=== PATIENT | female | born 1980 | race Hispanic/Latino ===

== ENCOUNTER 2016-10-17 23:11 | Inpatient (IN) | payer MEDICAID ==
[~2016-10-17] VITALS: Ht 170.2 cm; Wt 83.9 kg
[~2016-10-17 23:11] MED LIST: MISO200T4 PO; PNV1TABL9 PO
[2016-10-18] VITALS (8 sets, daily range): BP systolic 95–104; BP diastolic 51–61; PULSE 66–92; RESP 11–17; O2SAT 93–97
[2016-10-18] MEDS ORDERED: Lactated Ringer's 1,000 ML IV PRN (00:04)
[2016-10-18] MEDS ORDERED: Oxytocin 30 Units/500 mL LR 30 UNITS in IV Premix 1 EACH IV PRN ×2 (00:05→04:15)
[2016-10-18] MEDS ORDERED: Oxytocin 10 Unit/mL Inj IM PRN ×2 (00:05→04:15)
[2016-10-18] MEDS ORDERED: Hemorrhage Kit, Post Partum XX ONE ×2 (00:05→04:15)
[2016-10-18] MEDS ORDERED: Carboprost 250 mCg/mL Inj IM PRN ×2 (00:05→04:15)
[2016-10-18] MEDS ORDERED: Sodium Chloride LOK Flush 10 mL Syringe IVFLUSH PRN (00:05)
[2016-10-18] MEDS ORDERED: Methylergonovine 0.2 mg/mL Inj IM PRN ×2 (00:05→04:15)
[2016-10-18 00:40] LABS: Mean Corpuscular Hemoglobin 28.8 pg (27.0-35.0); Mean Corpuscular Volume 84.3 fL (81-100)
[2016-10-18] MEDS ORDERED: fentaNYL 2 mCg/mL-Bupivicaine 0.125% 100 mL Premix EPIDURAL ONE (00:58)
[2016-10-18] MEDS ORDERED: Lactated Ringer's 1,000 ML IV SCH ×4 (01:33→14:01)
[2016-10-18] MEDS ORDERED: Lactated Ringer's 500 ML IV ONE (01:33)
--- NOTE | 2016-10-18 01:34 | PCM.HPANE ---
Patient Data Surgeon Admitting Provider:Nora Shafer MD Attending Provider:Nora Shafer MD Primary Care Physician:Nora Shafer MD Other Provider:Pallavi Ziegler Anesthesia Reason for Visit Term Labor TERM LABOR Ht/WT & BMI Body Mass Index Allergies Coded Allergies: No Known Allergies (Verified , 02/28/04) Diabetes History Hx Diabetes?: No Medications Reported Medications Misoprostol 200 Mcg [id number] Mcg PO ONCE vaginally 5-6am morning of surgery 09/24/15 Pnv Cmb#21/Iron/Folic Acid ( Complete Caplet)1 Each Tablet1 Each PO DAILY 09/24/15 History History of ENT Problems?: No Hx of Heart Problems?: No Hx of Respiratory Problem?: No Hx Neurologic Problems?: No Hx of GI Problems?: No Hx of Problems?: No Female Hx: Positive for:: Problems with Breasts? (Hx of left breast biopsy) Denies:: Currently (missed Ab current admission problem) Hx Musculoskeletal Problems?: No Hx of Psycho/Social Problems?: Yes Psycho Social History: Positive for:: Hx Depression Hx Surgeries?: Yes (left breast biopsy) Hx Any Other Health Problems?: Yes Hx Diabetes: No Smoking Status: Never Smoker Have You Smoked inLast 12 mo: No Stop/Bang Risk Assessment Category Category 1A: Patient has history of documented sleep apnea, and HAS NOT received any narcotic, sedative or anesthesia administration during this stay. Category 1B: Patient has history of documented sleep apnea, and HAS received any narcotic , sedative or anesthesia administration during this stay Category 2: Patient has SUSPECTED Obstructive Sleep Apnea, and HAS received any narcotic , sedative or anesthesia administration during this stay. Category 3: Patient has SUSPECTED Obstructive Sleep Apnea and HAS NOT received narcotic, sedative or anesthesia administration during this stay. Category 4: Outpatient in Procedural Areas with known sleep apnea or who screen positive for High Risk via the STOP/BANG questionnaire. Exam Exam General Appearance: Alert, Oriented X3, Cooperative, No Acute Distress, Severe Distress (labor pain) HEENT/AIRWAY: MP 2 Lungs: Clear to Auscultation, Normal Air Movement Heart: Exam Unremarkable, Regular Rate/Rhythm, No Murmurs/Rubs/Gallops Meds/Labs/Diagnostics Labs Test 10/18/16 00:00 10/18/16 00:04 Hold Purple Top Tube Received (Received) White Blood Count 10.4th/mm3 (3.8-10.1) Red Blood Count 4.20mil/mm3 (3.90-5.20) Hemoglobin 12.1g/dL (12.0-15.6) Hematocrit 35.4% (35.0-46.0) Mean Corpuscular Volume 84.3fL (81-100) Mean Corpuscular Hemoglobin 28.8pg (27.0-35.0) Mean Corpuscular Hemoglobin Concent 34.2% (32.0-37.0) Red Cell Distribution Width 13.7% (12.3-15.4) Platelet Count 197bil/L (150-400) Plan Impression Patient chart reviewed, patient interviewed and anesthestic plan with risks, benefits, and alternatives discussed, and informed consent obtained. NPO Status: 0830 TASTE OF RICE AND MILK ASA Physical Status: ASA1 Normal Healthy Anesthetic Plan: Epidural Bene/Risks/Altern/Consents: Yes HP Complete Prior to Induction: Yes Gary Roman MD Oct 18, 2016 00:57
[2016-10-18] MEDS ORDERED: fentaNYL 2 mCg/mL-Bupiv 0.125% 100 ML EPIDURAL SCH (01:35)
[2016-10-18] MEDS ORDERED: Atropine 1 mg/10 mL (Code) Syringe IVPUSH PRN (01:35)
[2016-10-18] MEDS ORDERED: EPHEDrine Sulfate 50 mg/mL Inj IVPUSH PRN ×2 (01:35→14:00)
--- NOTE | 2016-10-18 03:32 | HP ---
[address] [address] HISTORY AND PHYSICAL PATIENT: ANGEL WEBB : 1980 MR#: [id number] ADMIT: 10/17/2016 JOB ID: [id number] CHIEF COMPLAINT: Contractions. HISTORY OF PRESENT ILLNESS: This is a 36-year-old, G6, P4-0-1-4 female who is presenting at 37 plus five weeks gestational age with an EDC of November 03, 2016, complaining of regular uterine contractions. She was seen earlier in the evening and noted to be 3 cm dilated, unchanged after several hours and discharged home. She returned later in the evening, again complaining of contractions, and was at that point in time noted to be 5 cm dilated so was then admitted in active labor. Her has been complicated by anemia, grand multiparity and undesired fertility with plans for tubal ligation. PAST MEDICAL HISTORY: Denies. PAST SURGICAL HISTORY: Suction dilation and curettage for her missed . SOCIAL HISTORY: No tobacco, alcohol, or drug use. FAMILY HISTORY: Noncontributory. MEDICATIONS: vitamins. ALLERGIES: No known drug allergies. LABORATORY DATA: Blood type is A-positive. Antibody screen negative, rubella immune. Hep B surface antigen negative. RPR nonreactive. HIV negative. GBS negative. PHYSICAL EXAMINATION: Objectively her blood pressure is 108/76, her heart rate is 98, temperature is 98.6, and respiratory rate is 18. In general, she is awake, alert, oriented, comfortable, in no acute distress. She has already received an epidural. Heart shows a regular rate and rhythm. Her abdomen is soft, nontender, nondistended. EFW is approximately 7 pounds and she does appear to somewhat large for her 37 weeks gestational age. Her extremities show no tenderness or edema. heart tones show 140s baseline, moderate variability, accelerations are present. There are mild variable decelerations present as well. Tocometry shows contractions every 3 minutes. Bedside cervical check by the RN notes that she is currently at 10 cm dilated at 0 station. There is no palpable bag of water identifiable on examination at this time. At the time of admission, she was 5 and has progressed quickly to this point. ASSESSMENT: This is a 36-year-old, G6, P4-0-1-4, female at 37 plus five weeks gestational age. Estimated date of confinement of November 03, 2016, who is admitted in active labor, making good cervical change on her own. PLAN: 1. Continue expectant management at this time. As she is completely dilated will begin pushing and anticipate a normal vaginal delivery. Largest baby delivered in the past was 8 pounds. 2. She has undesired fertility. She has signed [facility] sterilization consent previously in clinic. Plan for tubal ligation following delivery. 3. Her labs appear up-to-date and she is Rh positive, rubella immune. She has received a Tdap, as well as a flu vaccine this .
[2016-10-18] MEDS ORDERED: Benzocaine (Dermoplast) 20% 60 Gm Spray TOPICAL PRN (04:15)
[2016-10-18] MEDS ORDERED: LANOlin HPA 7 Gm Ointment TOPICAL PRN (04:15)
[2016-10-18] MEDS ORDERED: Witch Hazel-Glycerin Pads TOPICAL PRN (04:15)
--- NOTE | 2016-10-18 04:18 | OP ---
[address] [address] OPERATIVE REPORT PATIENT: ANGEL WEBB : 1980 MR#: [id number] ADMIT: 10/17/2016 JOB ID: [id number] DATE OF SURGERY: 10/18/2016 PREOPERATIVE DIAGNOSIS(ES): A 37 week intrauterine in active labor. POSTOPERATIVE DIAGNOSIS(ES): A 37 week intrauterine in active labor. PROCEDURE PERFORMED: Spontaneous vaginal delivery of a liveborn female infant, born on October 18, 2016, of average weight, with actual weight pending, Apgars of 8 at one minute, 9 at five minutes. SURGEON: Melinda Briggs MD. ANESTHESIA: Epidural. ESTIMATED BLOOD LOSS: 400 cc. FLUID REPLACEMENT: Crystalloid in labor. COMPLICATIONS: None apparent. INDICATIONS: This is a 36-year-old, G6, P4-0-1-4 female who presented at 37 plus five weeks gestation complaining of regular uterine contractions. She was noted to be making cervical change so she was admitted in active labor. Epidural was placed for pain relief and she progressed from 3 cm earlier in the day all the way to complete by the salon customer experience specialist hours of October 18. She spontaneously ruptured on her own in the salon customer experience specialist hours of October 18 and then quickly progressed to complete as noted. PROCEDURE: The patient was noted to be complete she was placed in dorsal lithotomy position, prepped and draped in usual sterile fashion for delivery. She pushed and head delivered spontaneously in the ROD position over an intact perineum. The anterior shoulder delivered easily, followed by the posterior shoulder and remainder of the then delivered easily. The cord was clamped and cut after a 60 second cord clamping delay, and the was placed on the mother's abdomen. Pitocin was then started per protocol. The placenta then delivered intact spontaneously and was passed off the table. The uterus was firm on bimanual massage and there were some remaining placental membranes that were removed manually. The uterus was firm. Examination of the cervix, vaginal vault and perineum revealed no lacerations. There was a small midline perineal abrasion that was not repaired. All sponge, needle and instrument counts were correct at the completion the procedure. [facility]
[2016-10-18] MEDS ORDERED: Sodium Citrate-Citric Acid 15 mL Solution PO SCH (06:00)
[2016-10-18] MEDS: Ascorbic Acid 500 mg Tablet PO SCH ×2 (08:00→18:29)
[2016-10-18] MEDS ORDERED: fentaNYL-PF 50 mCg/mL 2 mL Inj ONE (12:55)
[2016-10-18] MEDS ORDERED: Lactated Ringer's 500 ML IV PRN (13:58)
[2016-10-18] MEDS ORDERED: Phenylephrine 10,000 mCg/mL Inj IVPUSH PRN (14:00)
[2016-10-18] MEDS ORDERED: fentaNYL-PF 50 mCg/mL 2 mL Inj IVPUSH PRN (14:00)
[2016-10-18] MEDS ORDERED: HYDROmorphone 1 mg/mL Inj IVPUSH PRN (14:00)
[2016-10-18] MEDS ORDERED: Ondansetron 2 mg/mL 2 mL Inj IVPUSH PRN ×2 (14:00→14:05)
[2016-10-18] MEDS ORDERED: Labetalol 5 mg/mL 4 mL Inj IV PRN (14:00)
[2016-10-18] MEDS ORDERED: Atropine 0.4 mg/mL Inj IVPUSH PRN (14:00)
[2016-10-18] MEDS ORDERED: hydrALAZINE 20 mg/mL Inj IVPUSH PRN (14:00)
[2016-10-18] MEDS ORDERED: MetoCLOpramide 5 mg/mL 2 mL Inj IVPUSH PRN (14:00)
[2016-10-18] MEDS ORDERED: Dexamethasone 4 mg/mL Inj IVPUSH PRN (14:00)
--- NOTE | 2016-10-18 14:02 | PCM.HPANE ---
Patient Data Date of Service: Oct 18, 2016 Surgeon Admitting Provider:Nora Shafer MD Attending Provider:Nora Shafer MD Primary Care Physician:Nora Shafer MD Other Provider:Pallavi Ziegler Anesthesia Reason for Visit Term Labor TERM LABOR Ht/WT & BMI Body Mass Index Allergies Coded Allergies: No Known Allergies (Verified , 02/28/04) Diabetes History Hx Diabetes?: No Medications Hypertension Medication: No Home Meds Incl Beta Johnathon: No Reported Medications Misoprostol 200 Mcg [id number] Mcg PO ONCE vaginally 5-6am morning of surgery 09/24/15 Pnv Cmb#21/Iron/Folic Acid ( Complete Caplet)1 Each Tablet1 Each PO DAILY 09/24/15 History History of ENT Problems?: No Hx of Heart Problems?: No Hx of Respiratory Problem?: No Hx Neurologic Problems?: No Hx of GI Problems?: No Hx of Problems?: No Female Hx: Positive for:: Problems with Breasts? (Hx of left breast biopsy) Denies:: Currently (missed Ab current admission problem) Hx Musculoskeletal Problems?: No Hx of Psycho/Social Problems?: Yes Psycho Social History: Positive for:: Hx Depression Hx Surgeries?: Yes (left breast biopsy) Hx Any Other Health Problems?: Yes Hx Diabetes: No Smoking Status: Never Smoker Have You Smoked inLast 12 mo: No Stop/Bang Treated for Sleep Apnea?: No Do You Have a CPAP Machine?: No S-Snoring: Do You Snore Loudly: No T-Tired: feel tired, fatigued: No O-Obsered: Observed not breath: No P-Blood Pressure: treated: No B- Body Mass Index > 35 kg/m2: No A- Age over 50: No N- Neck Large Circumference: No G- Gender Male: No BERTHA Risk Assessment: Low Risk, <3 Yes Risk Assessment Category Category 1A: Patient has history of documented sleep apnea, and HAS NOT received any narcotic, sedative or anesthesia administration during this stay. Category 1B: Patient has history of documented sleep apnea, and HAS received any narcotic , sedative or anesthesia administration during this stay Category 2: Patient has SUSPECTED Obstructive Sleep Apnea, and HAS received any narcotic , sedative or anesthesia administration during this stay. Category 3: Patient has SUSPECTED Obstructive Sleep Apnea and HAS NOT received narcotic, sedative or anesthesia administration during this stay. Category 4: Outpatient in Procedural Areas with known sleep apnea or who screen positive for High Risk via the STOP/BANG questionnaire. Exam Exam General Appearance: Alert, Oriented X3, Cooperative, No Acute Distress HEENT/AIRWAY: MP 2 Lungs: Clear to Auscultation Heart: Exam Unremarkable, Regular Rate/Rhythm, No Murmurs/Rubs/Gallops Meds/Labs/Diagnostics Admission Meds Current Medications Citric Acid/ Sodium Citrate (Bicitra) 30 ml PREOP PO Last administered on t 11:37; Start 10/18/16 at 06:00 Labs Test 10/18/16 00:00 10/18/16 00:04 10/18/16 08:50 Hold Purple Top Tube Received (Received) White Blood Count 10.4th/mm3 (3.8-10.1) Red Blood Count 4.20mil/mm3 (3.90-5.20) Mean Corpuscular Volume 84.3fL (81-100) Mean Corpuscular Hemoglobin 28.8pg (27.0-35.0) Mean Corpuscular Hemoglobin Concent 34.2% (32.0-37.0) Red Cell Distribution Width 13.7% (12.3-15.4) Platelet Count 197bil/L (150-400) Hemoglobin 11.0g/dL (12.0-15.6) Hematocrit 33.4% (35.0-46.0) Plan Impression Patient chart reviewed, patient interviewed and anesthestic plan with risks, benefits, and alternatives discussed, and informed consent obtained. NPO Status: 0830 TASTE OF RICE AND MILK ASA Physical Status: ASA2 Mod Systemic Disease Anesthetic Plan: GA, Regional Block (Will attempt spinal. GA as backup.) Bubba Robertson MD Oct 18, 2016 14:02
[2016-10-18] MEDS ORDERED: oxyCODONE-Acetamin 5-325 mg Tablet PO PRN (14:05)
[2016-10-18] MEDS ORDERED: Acetaminophen IV 1,000 MG in IV Premix 1 EACH IV PRN (14:05)
[2016-10-18] MEDS ORDERED: Ketorolac 15 mg/mL Inj IVPUSH PRN (14:05)
--- NOTE | 2016-10-18 14:05 | PCM.ANEP1 ---
Post Anesthesia Phase 1 PACU Phase 1 Assessment Date of Service: Oct 18, 2016 Anesthetic Administered: GA Level of Alertness: Sleepy, easy to arouse SALDIVAR's with Equal Strength: Yes Pain: Yes Pain Scale Score: 4 Nausea or Vomiting: No Oxygen Delivery: Room Air Lungs: Clear to Auscultation Dermatome Level: Full Sensation Bubba Robertson MD Oct 18, 2016 14:05
--- NOTE | 2016-10-18 14:07 | PCM.ANEP2 ---
Post Anesthesia Evaluation ASA/CMS Post Anesthesia VS in Patient's Normal Range?: Yes Resp Stable; Airway Patent?: Yes CV Function & Hydration Stable: Yes Mental Status Recovered?: Yes Pain control Satisfactory?: Yes N/V Control Satisfactory?: Yes Bubba Robertson MD Oct 18, 2016 14:07
[2016-10-18] MEDS ORDERED: Lactated Ringer's 1,000 ML IV ONE (14:12)
[2016-10-18] MEDS: oxyCODONE-Acetamin 5-325 mg Tablet PO PRN ×2 (14:31→22:02)
--- NOTE | 2016-10-19 00:29 | OP ---
[address] [address] OPERATIVE REPORT PATIENT: ANGEL WEBB : 1980 MR#: [id number] ADMIT: 10/17/2016 JOB ID: [id number] DATE OF SURGERY: 10/18/2016 PREOPERATIVE DIAGNOSIS(ES): Multiparity, desires permanent sterilization day zero. POSTOPERATIVE DIAGNOSIS(ES): Multiparity, desires permanent sterilization day zero. PROCEDURE: 1. tubal ligation via mini-laparotomy and partial salpingectomy. 2. Repair of uterine serosal laceration at right cornu. ESTIMATED BLOOD LOSS: 75 mL. DRAINS: None. ANESTHESIA: General for inadequate epidural anesthesia. SURGEON: Jose Angel Cancino MD. SPRAY UNIT FEEDER: Nora Shafer MD. Paving Stone Installer was required for retraction and exposure for safe completion of the procedure. COMPLICATIONS: Uterine serosal laceration at the right cornu that was repaired. FLUID: 1100 crystalloid fluid IV. SPECIMENS: Right and left segments of fallopian tubes. INDICATIONS: This is a 37 years old 6, para 5-0-1-5, who is day zero, status post spontaneous vaginal delivery, desires permanent sterilization. Patient was consented at the office over a month ago and consent was reviewed. Before the procedure, patient was consented again for risk, benefits and alternatives of the tubal ligation, which include, but are not limited to, tubal ligation is a permanent procedure with a failure rate of 1:200, and there is a risk of ectopic in 1/3 of failed tubal ligation patients. Risks of surgery, which includes, but not limited to, risk of infection, bleeding, and injury to adjacent organs, risk of anesthesia, risk of blood transfusions, LARC as alternative were also reviewed. Male sterilization option was also discussed. All questions were answered. Patient desires to proceed with tubal ligation as planned today. PROCEDURE: After informed consent was obtained, patient was taken to the operation room. She was placed in a sitting position where epidural anesthesia was rebolused. The patient was placed in supine position. She was prepped and draped in usual sterile fashion. After assessment of the anesthesia coverage that was inadequate, decision was made to convert to general anesthesia. After adequate general anesthesia was introduced, two Allis clamps were used to grasp the subumbilical region creating subumbilical ridge. Using a scalpel, incision was made in a transverse fashion in the subumbilical ridge. Allis clamps were removed and replaced at the edges of the incision, with blunt and sharp dissection down to the fascia was performed. The fascia was grasped with two Maame clamps and was elevated and entered with sharp incision. The incision was extended. Attention was made to evaluate for any injury at the entrance to the peritoneal cavity. No evidence of injury at this point. Two [facility] retractors were placed. A mini-lap was placed in the left gutter. Patient was tilted to the right. With assistance of Irene clamp, the fallopian tube was grasped and followed out to the fimbria. The middle segment of the tube was elevated with a Stephani clamp and area clear of the vascularity was identified and a window was created with Bovie cautery. A double tie was performed in each side of the 4 cm in length middle segment of the tube bilaterally. The double ligated middle segment of the tube was then excised and sent for pathology. The fallopian tube edges were cauterized. Adequate hemostasis was noted. The remaining stumps of the tube was returned back to the abdominal cavity. Then, attention was turned to the right fallopian tube. Patient was tilted to the left and a mini-lap was introduced into the right gutter to retract the bowel and expose the fallopian tube, that was grasped with Irene clamp and traced out to the fimbria and exteriorized. An area clear off the vascularity in the mesosalpinx was identified. A window was created with Bovie cautery. The middle segment of the tube was double ligated with 0-Vicryl bilaterally and approximately 4 cm was excised and sent to Pathology evaluation. The end of the tube was cauterized and at this point some bleeding was noted. The mesosalpinx and the fimbria ends were examined and hemostasis was noted. Then, a 3-4 cm laceration was identified at the cornual region of the right cornu. The laceration was 2-3 mm in depth that was closed with 2-0 chromic with good hemostasis. No further bleeding was noted. The fascia was reapproximated with 0-Vicryl in a running fashion. The subcutaneous tissue was reapproximated with 2-0 chromic in interrupted fashion. The skin edges were reapproximated with 4-0 Vicryl in subcuticular fashion. Steri-Strips were applied, followed by a bandage. All instrument, needles and sponge counts were correct x2. The patient was taken to the recovery room in stable condition. Jose Agnel Reyes MD, was present and scrubbed for the entire procedure. LILLY
[2016-10-19] MEDS: oxyCODONE-Acetamin 5-325 mg Tablet PO PRN ×2 (04:37→09:52)
[2016-10-19] MEDS: Ascorbic Acid 500 mg Tablet PO SCH (07:48)
[2016-10-19 09:17] LABS: BASOPHILS % (AUTO) 0.3 % (0-3); EOSINOPHILS % (AUTO) 1.2 % (0-5); MONOCYTES % (AUTO) 8.8 % (4-12); Mean Corpuscular Hemoglobin 28.4 pg (27.0-35.0); Mean Corpuscular Volume 86.6 fL (81-100); NEUTROPHILS % (AUTO) 72.4 % (40-74); Platelet Count 179 bil/L (150-400)
--- NOTE | 2016-10-19 11:46 | PCM.DIOB ---
Obstetrical Disch Instruction Date of Service: Oct 19, 2016 Dates of Hospitalization Date of Hospital Admission Oct 17, 2016 at 23:35 Providers Admitting Physician: Nora Shafer MD Primary Care Physician: Nora Shafer MD Attending Physician: Nora Shafer MD Discharge Diagnosis Discharge Diagnosis Status post normal vaginal delivery and post tubal ligation. Post Operative diagnosis Status post normal vaginal delivery and post tubal ligation. Problems: Diet Discharge Diet: No restrictions Activity Discharge Activity-General: Pelvic Rest for 6 weeks (no sex, no douching nor tampon), Be up and about, Balance rest and activity, No lifting >10 pounds for 4 -6 weeks Dressing and Incisional Care Dressing Care: Allow Steri Stripes to fall off Hygiene: May shower (Daily ) Follow Up Plan Follow Up Plan Headache, change in vision, nausea or vomiting, leg swelling, redness or pain. Follow-up Provider (F9): Jose Angel Cancino MD Follow-up appointment: Weeks (two) Call your provider for: Fever or Chills, Shortness of breath, Heavy vaginal bleeding, Heavy bleeding, Epigastric pain, Excessive constipation, Vaginal discomfort, Red painful breasts, Other (Headache, change in vision, nausea or vomiting, leg swelling, redness or pain. ) Jose Angel Cancino MD Oct 19, 2016 11:46
[2016-10-19] MEDS ORDERED: PNV1TABL9 PO (11:49)
[2016-10-19] MEDS ORDERED: IBUP-1827 PO (11:50)
[2016-10-19] MEDS ORDERED: OXYC1TAB24 PO (11:50)
[2016-10-19] MEDS ORDERED: DOCU-41 PO (11:50)
[2016-10-19 11:54] VITALS: BP 83/51; PULSE 66; RESP 20
--- NOTE | 2016-10-19 11:56 | PCM.DC.OB ---
Obstetrical Discharge Summary Date of Service Oct 19, 2016 Date of hospital admission Oct 17, 2016 at 23:35 Date of Discharge: Oct 19, 2016 Providers Admitting Physician: Nora Shafer MD Primary Care Physician: Nora Shafer MD Attending Physician: Nora Shafer MD Diagnosis at Time of Discharge day #1 Status post normal vaginal delivery. Post Operative day #1 post tubal ligation. Problems: Hospital Course: This is a 36-year-old, G6, P5-0-1-5 female who presented at 37 plus five weeks gestation in active labor and delivered on 10/18/16 via under epidural anaesthesia. Outcome: 3529 g , female , apgars 9 and 9 at 1 and 5 minutes respectively. Patient underwent tubal ligation on 10/18/16. See delivery and operative note for details. PHYSICAL EXAMINATION: At discharge day patient is feeling weel, pain well controlled with oral pain medications, tolerating regular diet, voiding and ambulating without difficulty. VS: 83/51, 66, 20, 36.9 General: awake, alert, oriented, comfortable, in no acute distress. Resp: EAE B/L CVS: S1+S2+0 Abdomen: soft, nontender,nondistended. Incision I/C/D. Lower extremities: no tenderness or edema. Lochia: normal. LABORATORY DATA: Blood type is A-positive. Antibody screen negative rubella immune. Hep B surface antigen negative. RPR nonreactive. HIV negative. GBS negative. LABS: Laboratory Tests 72 Hours Test 10/18/16 00:00 10/18/16 00:04 10/18/16 08:50 10/19/16 09:00 Hold Purple Top Tube Received (Received) White Blood Count 10.4th/mm3 (3.8-10.1) 6.8th/mm3 (3.8-10.1) Red Blood Count 4.20mil/mm3 (3.90-5.20) 3.95mil/mm3 (3.90-5.20) Hemoglobin 12.1g/dL (12.0-15.6) 11.0g/dL (12.0-15.6) 11.2g/dL (12.0-15.6) Hematocrit 35.4% (35.0-46.0) 33.4% (35.0-46.0) 34.2% (35.0-46.0) Mean Corpuscular Volume 84.3fL (81-100) 86.6fL (81-100) Mean Corpuscular Hemoglobin 28.8pg (27.0-35.0) 28.4pg (27.0-35.0) Mean Corpuscular Hemoglobin Concent 34.2% (32.0-37.0) 32.7% (32.0-37.0) Red Cell Distribution Width 13.7% (12.3-15.4) 14.0% (12.3-15.4) Platelet Count 197bil/L (150-400) 179bil/L (150-400) Neutrophils (%) (Auto) 72.4% (40-74) Lymphocytes (%) (Auto) 17.0% (14-46) Monocytes (%) (Auto) 8.8% (4-12) Eosinophils (%) (Auto) 1.2% (0-5) Basophils (%) (Auto) 0.3% (0-3) Docusate Sodium (Colace) 100 Mg Capsule 100 MG PO BID PRN PRN For Constipation Prescribed by: ONEIDA LEBRON MD Ibuprofen (Ibuprofen) 600 Mg Tablet 600 MG PO QID PRN PRN For Pain Prescribed by: ONEIDA LEBRON MD Misoprostol (Misoprostol) 200 Mcg Tablet 400 MCG PO ONCE (Reported) vaginally 5-6am morning of surgery Pnv Cmb#21/Iron/Folic Acid ( Complete Caplet) 1 Each Tablet 1 EACH PO DAILY Prescribed by: ONEIDA LEBRON MD oxyCODONE-Acetaminophen 5-325 mg (oxyCODONE-Acetaminophen 5-325 mg) 1 Each Tablet 1-2 TAB PO Q4H PRN PRN For Moderate Pain Prescribed by: ONEIDA LEBRON MD Disposition Disposition: home. Discharge condition: stable. Diet Discharge Diet: No restrictions Activity Discharge Activity-General: Pelvic Rest for 6 weeks (no sex, no douching nor tampon), Be up and about, Balance rest and activity, No lifting >10 pounds for 4 -6 weeks Dressing and Incisional Care Dressing Care: Allow Steri Stripes to fall off Hygiene: May shower (Daily ) Follow Up Plan Follow Up Plan Headache, change in vision, nausea or vomiting, leg swelling, redness or pain. Follow-up Provider (F9): Oneida Lebron MD Follow-up appointment: Weeks (two) Call your provider for: Fever or Chills, Shortness of breath, Heavy vaginal bleeding, Heavy bleeding, Epigastric pain, Excessive constipation, Vaginal discomfort, Red painful breasts, Other (Headache, change in vision, nausea or vomiting, leg swelling, redness or pain. ) Oneida Lebron MD Oct 19, 2016 11:52
--- NOTE | 2016-10-20 14:18 | PATH ---
SURGICAL PATHOLOGY Attending Physician:Jose Angel Cancino CASE STATUS: Signed Out PATIENT NAME: ANGEL WEBB PID: [id number] : 1980 DATE COLLECTED:10/18/2016 00:00 SPECIMEN: 1: Fallopian Tube, Sterilization 2: Fallopian Tube, Sterilization CLINICAL HISTORY: MULTIPARITY, DESIRES PERMANENT STERILIZATION 1). RIGHT FALLOPIAN TUBE SEGMENT 2). LEFT FALLOPIAN TUBE SEGMENT FINAL DIAGNOSIS: 1-2. Segments of Right and Left Fallopian Tubes (Sterilization Procedure): No significant pathologic change. ICD10: Z30.2 GROSS DESCRIPTION: The specimen is received in two formalin filled containers labeled with the patient's name. 1). The specimen is labeled "R tube" and consists of a 1.5 x 0.7 x 0.6 CM cylindrical-shaped portion of tissue. The specimen is inked blue. The specimen is sectioned into 4 pieces and entirely submitted in cassette 1A. 2). The specimen is labeled "L tube" and consists of a 1.8 x 0.8 x 0.6 CM cylindrical shaped portion of tissue. The specimen is inked blue. The specimen is sectioned into 4 pieces and entirely submitted in cassette 2A. 10/19/2016 [facility] ICD-9 CODES: CPT CODES: 1: 19896 2: 03771 Electronically Signed Out Josias Rosado MD [facility] Pathology [facility] [address], [place] [address] Technical component performed at [facility], [address] [place] [address] [address], [place], [address]
== END 2016-10-19 12:56 | disposition home or self-care (01) | DRG 767 ==
LOC: FBCO 23:11 → FBC 23:35
PROVIDERS: ADMIT Obstetrics & Gynecology; ATTEND Obstetrics & Gynecology
PROC: 0UB74ZZ Excision of Bilateral Fallopian Tubes, Percutaneous Endoscopic Approach (ICD-10-PCS; 2016-10-18)
PROC: 10D17ZZ Extraction of Products of Conception, Retained, Via Natural or Artificial Opening (ICD-10-PCS; 2016-10-18)
PROC: 10E0XZZ Delivery of Products of Conception, External Approach (ICD-10-PCS; principal; 2016-10-18 14:15)
DX: O73.1 Retained portions of placenta and membranes, without hemorrhage (principal); Z37.0 Single live birth; O09.43 Supervision of pregnancy with grand multiparity, third trimester; Z30.2 Encounter for sterilization; Z3A.37 37 weeks gestation of pregnancy; Z64.0 Problems related to unwanted pregnancy